=== PATIENT | male | born 1995 | race Native Hawaiian/Other Pacific Islander ===

== ENCOUNTER 2021-03-15 13:14 | Emergency (ER) | payer BC ==
[2021-03-15 13:55] VITALS: BP 152/89
[2021-03-15] MEDS ORDERED: TETANUS,DIPH,PERTUSS(ACELL) VACCINE 0.5 ML SYRINGE IM ONE (14:17)
--- NOTE | 2021-03-15 14:19 | Emergency Department Report ---
ED Laceration HPI - HPI Chief Complaint: Wound/Laceration Stated Complaint: RT KNEE LAC Time Seen by Provider: 03/15/21 14:13 Occurred When: Today Location: Lower Extremity Severity: mild Tetanus Status: Unknown Laceration Symptoms: No Foreign Body Sensation, No Numbness, No Weakness Other History: 25-year-old male presents emerged department complaining of a laceration to the right leg that occurred on unknown etiology. States he was driving in his car looked down and his parents noticed a rip and had a laceration on his leg.He reports no known trauma reports no known issue/health condition resulting in lower extremity no no known neuropathy or desensitization ED Review of Systems ROS: Stated complaint: RT KNEE LAC Other details as noted in HPI Comment: All other systems reviewed and negative Laceration Physical Exam - Exam General: Vital signs noted. No distress. Alert and acting appropriately. Laceration Location: Lower Extremity Laceration Exam: Yes Normal Distal CMS, No Foreign Body, No Exposed Tendon, Vessel, or Nerve, No Tendon Injury ED Course Vital Signs 03/15/21 13:53 Temperature 98 F Pulse Rate 114 H Respiratory 20 Rate Blood Pressure 152/89 [Left] O2 Sat by Pulse 100 Oximetry - Laceration /Wound Repair Right Leg Wound Location: lower extremity Wound Length (cm): 6 Wound's Depth, Shape: linear Irrigated w/ Saline (ccs): 40 Betadine Prep?: Yes Anesthesia: 1% Lidocaine Volume Anesthetic (ccs): 3 Wound Debrided: minimal Wound Repaired With: sutures Suture Size/Type: 4:0 (Vicryl) Number of Sutures: 5 Layer Closure?: No Sterile Dressing Applied?: Yes - Nerve Block Consent Obtained: verbal consent Time Out Performed: Yes Local Anesthetic Used: Lidocaine 2% Amount of anesthesia used: 3 Side: right Critical care attestation.: If time is entered above; I have spent that time in minutes in the direct care of this critically ill patient, excluding procedure time. ED Disposition Clinical Impression: Laceration of leg, right Disposition: 01 HOME / SELF CARE / HOMELESS Is pt being admited?: No Does the pt Need Aspirin: No Condition: Stable Instructions: Laceration Care, Adult, [id number], Sutures, [place], or Adhesive Wound Closure, [id number] Additional Instructions: He was seen by department today for right lower extremity laceration your sutures are absorbable so there is no need to return for removal it is recommended that you get a wound reevaluation in 5 days. Keep the wound clean antibacterial soap and water and use Tylenol and Motrin as needed for pain Referrals: [facility] [Provider Group] - 3-5 Days
== END 2021-03-15 15:47 | disposition home or self-care (01) ==
LOC: ED 13:14
DX: S81.811A Laceration without foreign body, right lower leg, initial encounter (principal); X58.XXXA Exposure to other specified factors, initial encounter; Y93.89 Activity, other specified; Y92.89 Other specified places as the place of occurrence of the external cause; Y99.8 Other external cause status
CPT/HCPCS: 90471; 90715; 99282